=== PATIENT | female | born 1980 | race Caucasian/White ===

== ENCOUNTER → 2016-08-27 | Outpatient (CLI) | payer BC ==
[~2016-08-27] MED LIST: BIOF500T PO; BUSP5TAB59 PO; CLX/20 PO; FRCT/ PO; HMLI SC; INSDGI SC; JNL12021 PO; METO25TA3 PO; MULTTAB58 PO
[2016-08-27 18:12] LABS: ALT/SGPT 18 U/L (12-78); AST/SGOT 13 U/L (15-37); BLOOD UREA NITROGEN 15 mg/dl (7-18); BUN/CREATININE RATIO 20.7 (10-20); CALCIUM 9.2 mg/dl (8.5-10.1); CARBON DIOXIDE 32 mmol/L (21-32); CHLORIDE 103 mmol/L (98-107); CREATININE 0.72 mg/dl (0.60-1.20); GLUCOSE 136 mg/dl (70-99); POTASSIUM 4.4 mmol/L (3.5-5.1); SODIUM 141 mmol/L (136-145)
[2016-08-27 18:23] LABS: ALKALINE PHOSPHATASE 73 U/L (45-117); CHOLESTEROL 149 mg/dl (0-200); CHOLESTEROL/HDL RATIO 1.9; HDL CHOLESTEROL 78 mg/dl; LDL CHOLESTEROL CALCULATED 58 mg/dl; TRIGLYCERIDES 67 mg/dl (0-150); VERY LOW DENSITY LIPOPROT CALC 13 mg/dl
[2016-08-27 18:42] LABS: RATIO 16.7 mcg/mg (0-30.0)
[2016-08-28 07:31] LABS: ESTIMATED AVERAGE GLUCOSE 174 mg/dl; HA1C FLAG Normal (Normal)
== END | disposition home or self-care (01) ==
LOC: C.LABMFLN 14:40
PROVIDERS: ATTEND Physician Assistant
DX: E11.3599 Type 2 diabetes mellitus with proliferative diabetic retinopathy without macular edema, unspecified eye (principal)

== ENCOUNTER → 2017-01-28 | Outpatient (CLI) | payer BC ==
[2017-01-29 07:25] LABS: ESTIMATED AVERAGE GLUCOSE 177 mg/dl; HA1C FLAG Normal (Normal)
== END | disposition home or self-care (01) ==
LOC: C.LABMFLN 16:08
PROVIDERS: ATTEND Physician Assistant
DX: E10.9 Type 1 diabetes mellitus without complications (principal)